=== PATIENT | male | born 1965 | race Two or more races ===

== ENCOUNTER 2018-05-18 11:46 | Emergency (ER) | payer OTHER ==
[~2018-05-18] VITALS: Ht 182.9 cm; Wt 117.9 kg
[~2018-05-18 11:46] MED LIST: AMOX1TAB12 PO; ASPIR-TRIN325 MG; ATORVASTATIN CA40 MG; COUMADIN10 MG PO; FENOFIBRATE54 MG; FLUCONAZOLE100 MG PO; GLIPIZIDE5 MG; HUMALOG100 U/ML; JANUMET XR 50-1 EAC1; LANTUS SOLOSTAR3 ML; LOSARTAN-HCTZ1 EAC2; METFORMIN HCL1000 MG; SYNTHROID175 MCG; VASOTEC20 MG
[2018-05-18] MEDS ORDERED: SYNTHROID175 MCG PO (12:31)
[2018-05-18] MEDS ORDERED: SYNTHROID150 MCG PO (12:31)
[2018-05-18] MEDS ORDERED: JANUMET 50-1,01 EACH PO (12:32)
[2018-05-18] MEDS ORDERED: [UNRECOGNIZED DRUG - OTHER] PO (12:32)
[2018-05-18] MEDS ORDERED: COZAAR25 MG PO (12:33)
[2018-05-18] MEDS ORDERED: LANTUS SOL100 UNIT/1 (12:33)
[2018-05-18] MEDS ORDERED: LANTUS SOL100 UNIT/1 SQ (12:33)
[2018-05-18] MEDS ORDERED: ATORVASTATIN CA40 MG PO (12:34)
[2018-05-18] MEDS ORDERED: ASA325 MG PO (12:34)
[2018-05-18] MEDS ORDERED: HUMALOG JU100 UNIT/1 SQ (12:34)
== END 2018-05-18 19:41 | disposition home or self-care (01) ==
LOC: ER 11:46 → CPU-OBS 12:01 → ER 12:01
DX: R07.89 Other chest pain (principal); H02.401 Unspecified ptosis of right eyelid
CPT/HCPCS: G0378; G0379; 93005; 70450

== ENCOUNTER 2019-09-23 05:32 | Inpatient (IN) | payer OTHER ==
[~2019-09-23] VITALS: Ht 167.6 cm; Wt 107.5 kg
[~2019-09-23 05:32] MED LIST changes: +ASA325 MG PO; +ATORVASTATIN CA40 MG PO; +COZAAR25 MG PO; +HUMALOG JU100 UNIT/1 SQ; +JANUMET 50-1,01 EACH PO; +LANTUS SOL100 UNIT/1; +LANTUS SOL100 UNIT/1 SQ; +SYNTHROID150 MCG PO; +SYNTHROID175 MCG PO; +[UNRECOGNIZED DRUG - OTHER] PO
--- NOTE | 2019-09-23 05:42 | NUR ---
FAMILIAR DEL PACIENTE REFIERE QUE EL PACIENTE SE LEVANTO DESORIENTADO CON DIFICULTAD AL HABLAR Y [place] INCOHERENCIAS. REFIERE QUE HACE 2 SEMANAS LE ELISABETH UN EPISODIO IGUAL Y [facility] DON[facility] LE REALIZARON CT MRI Y SALIERON NEGATIVOS. REFIERE QUE EL VIERNES LE ELISABETH OTRO EPISODIO IGUAL Y QUE EL ELLY DE BRADLEY Y LA MADRUGADA DE HOY LE SUCEDIO LO MISMO. AL MOMENTO DEL TRIAGE PTE SE ENCUENTRA ALERTA CONSCIENTE Y ORIENTADO X3. PRESENTA DIFICULTAD AL HABLAR Y NO PUEDE COORDINAR RASHEED PENSAMIENTOS.
[2019-09-23] MEDS ORDERED: ATACAND HCT 321 EAC1 (05:46)
[2019-09-23] MEDS ORDERED: XARELTO15 MG (05:46)
--- NOTE | 2019-09-23 06:20 | NUR ---
PACIENTE ALERTA Y ORIENTADO EN PERSONA. SE ORIENTA A PACIENTE Y FAMILIAR SOBRE PROCEDIMIENTO AREALIZAR Y REFIERE ENTENDER. SE REALIZA MUESTRAS DE LABORATORIO BAJO MEDIDAS ASEPTICAS. CANALIZACION PATENTE Y GENEVA DE EDEMA Y ERITEMA. SE MANTIENE BAJO OBSERVACION EN CAMA K6, CONECTADO A MONITOR CARDIACO Y OXIMETRIA DE PULSO.
--- NOTE | 2019-09-23 07:20 | NUR ---
SE RECIBE PT EN CAMA CON BARANDAS ELEVADAS Y TIMBRE ACCESIBLE, CONECTADO A MONITOR CARDIAOC Y OXIMETRIA DE PULSO CONTINUA. PT CON SALINE LOCK PATENTE. PT ALERTA, EN COMPANIA DE FAMILIAR. PT RESPONDE A LLAMADO, STEPHEN NO COORDINA PENSAMIENTOS NI VERBALIZAR IDEAS. SE MANTIENE EN OBSERVACION POR CAMBIOS.
--- NOTE | 2019-09-23 07:32 | NUR ---
SE RECIBE PT ALERTA Y ORIENTADO EN TIEMPO LUGAR Y PERSONA, EN CAMA CON BARANDAS ELEVADAS Y TIMBRE ACCESIBLE. PT CON SALINE LOCK, PENDIENTE DE RESULTADO DE LABORATORIO.
[2019-09-28] MEDS ORDERED: FOLIC ACID1 MG PO (14:43)
[2019-09-28] MEDS ORDERED: XARELTO15 MG PO (14:43)
[2019-09-28] MEDS ORDERED: HYDROCHLOROTH12.5 M1 PO (14:43)
[2019-09-28] MEDS ORDERED: LIPITOR40 MG PO (14:43)
[2019-09-28] MEDS ORDERED: POM (MEDICAMENTO EN PO (14:43)
[2019-09-28] MEDS ORDERED: ATACAND32 MG PO (14:43)
[2019-09-28] MEDS ORDERED: Lantus 1000 UNITS/10 SUBCUTANEO (14:43)
[2019-09-28] MEDS ORDERED: AMLODIPINE BESYL5 MG PO (14:43)
[2019-09-28] MEDS ORDERED: B Complex CAPSULE PO (14:43)
[2019-09-28] MEDS ORDERED: LEVOTHYROXINE150 MCG PO (14:43)
== END 2019-09-28 16:37 | disposition home or self-care (01) | DRG 69 ==
LOC: ER 05:32 → MEDJ 14:34
PROVIDERS: ADMIT Internal Medicine
PROC: BW28ZZZ Computerized Tomography (CT Scan) of Head (ICD-10-PCS; principal; 2019-09-23)
PROC: B030ZZZ Magnetic Resonance Imaging (MRI) of Brain (ICD-10-PCS; 2019-09-23)
PROC: B348ZZZ Ultrasonography of Bilateral Internal Carotid Arteries (ICD-10-PCS; 2019-09-24)
PROC: BR30YZZ Magnetic Resonance Imaging (MRI) of Cervical Spine using Other Contrast (ICD-10-PCS; 2019-09-27)
PROC: BR37YZZ Magnetic Resonance Imaging (MRI) of Thoracic Spine using Other Contrast (ICD-10-PCS; 2019-09-27)
DX: G45.9 Transient cerebral ischemic attack, unspecified (principal); F01.51 Vascular dementia, unspecified severity, with behavioral disturbance; E03.9 Hypothyroidism, unspecified; I10 Essential (primary) hypertension; E78.5 Hyperlipidemia, unspecified; E11.65 Type 2 diabetes mellitus with hyperglycemia; Z79.4 Long term (current) use of insulin; Z91.14 Patient's other noncompliance with medication regimen; R47.02 Dysphasia; E11.42 Type 2 diabetes mellitus with diabetic polyneuropathy; I51.7 Cardiomegaly
CPT/HCPCS: 70552; 72142; 72147

== ENCOUNTER 2021-02-25 18:18 | Inpatient (IN) | payer OTHER ==
[~2021-02-25] VITALS: Ht 182.9 cm; Wt 108.9 kg
[~2021-02-25 18:18] MED LIST changes: +AMLODIPINE BESYL5 MG PO; +ATACAND HCT 321 EAC1; +ATACAND32 MG PO; +B Complex CAPSULE PO; +FOLIC ACID1 MG PO; +HYDROCHLOROTH12.5 M1 PO; +LEVOTHYROXINE150 MCG PO; +LIPITOR40 MG PO; +Lantus 1000 UNITS/10 SUBCUTANEO; +POM (MEDICAMENTO EN PO; +XARELTO15 MG; +XARELTO15 MG PO
[2021-02-25] MEDS ORDERED: NEURONTIN300 MG (18:39)
[2021-02-25] MEDS ORDERED: KEPPRA500 MG (18:39)
[2021-02-25] MEDS ORDERED: ECOTRIN81 MG (18:39)
[2021-02-28] MEDS ORDERED: CLOPIDOGREL BIS75 MG PO (11:45)
[2021-02-28] MEDS ORDERED: LIPOFEN150 MG PO (11:45)
== END 2021-02-28 12:17 | disposition home or self-care (01) | DRG 64 ==
LOC: ER 18:18 → MEDI 02-26 10:43 → SEC-K 02-26 10:43 → MEDI 02-26 12:24
PROVIDERS: ADMIT Internal Medicine; ATTEND Internal Medicine
PROC: 4A12X4Z Monitoring of Cardiac Electrical Activity, External Approach (ICD-10-PCS; principal; 2021-02-26)
PROC: B24BZZZ Ultrasonography of Heart with Aorta (ICD-10-PCS; 2021-02-26)
PROC: B020ZZZ Computerized Tomography (CT Scan) of Brain (ICD-10-PCS; 2021-02-26)
PROC: B030ZZZ Magnetic Resonance Imaging (MRI) of Brain (ICD-10-PCS; 2021-02-26)
PROC: B348ZZZ Ultrasonography of Bilateral Internal Carotid Arteries (ICD-10-PCS; 2021-02-26)
DX: I63.532 Cerebral infarction due to unspecified occlusion or stenosis of left posterior cerebral artery (principal); I50.23 Acute on chronic systolic (congestive) heart failure; I11.0 Hypertensive heart disease with heart failure; E11.65 Type 2 diabetes mellitus with hyperglycemia; Z79.4 Long term (current) use of insulin; E03.8 Other specified hypothyroidism; R47.81 Slurred speech; Z20.822 Contact with and (suspected) exposure to COVID-19
CPT/HCPCS: 70551

== ENCOUNTER 2024-08-06 11:13 | Inpatient (IN) | payer OTHER ==
[~2024-08-06] VITALS: Ht 182.9 cm; Wt 231.8 kg
[~2024-08-06 11:13] MED LIST changes: +CLOPIDOGREL BIS75 MG PO; +ECOTRIN81 MG; +KEPPRA500 MG; +KEPPRA500 MG PO; +LIPOFEN150 MG PO; +NEURONTIN300 MG
--- NOTE | 2024-08-06 11:42 | NUR ---
PACIENTE MASCULINO ALERTA Y ORIENTADO X3, REFIERE PACIENTE EL ELLY SE LE REALIZO UN MRI DE ALISHA EL CUAL LE REFIERE LLEGAR A OFE DE EMERGENCIA.
[2024-08-06] MEDS ORDERED: 0.9 % SODIUM CHLORIDE 1,000 ML IV SCH ×2 (12:15→14:30)
[2024-08-06] MEDS ORDERED: LevETIRAcetam 500 MG/5 ML VIAL IV SCH (12:21)
[2024-08-06] MEDS ORDERED: LABETALOL HCL 200 MG/40 ML VIAL IV PRN (12:30)
--- NOTE | 2024-08-06 12:40 | NUR ---
SE RECIBE PTE ALERTA Y ORIENTADO X3 DE AREA DE TRIAGE EL CUAL SE CONECTA A MONITOR CARDIACO Y OXIMETRIA DE PULSO. SE CANALIZQA #18 EN [place]. SE COLOCA IVLFUIDS EMILY ORDEN MEDICA. SE REALIZAN MUESTRAS DE LABS Y SE ENVIAN DE FORMA INMEDIATA. SE EKATERINA PTE BAJO TX EN CAMA BAJA Y ABRANDAS ELEVADAS POR SEGURIDAD.
[2024-08-06 12:41] LABS: HEMATOCRIT 43.7 % (39.0-48.0); HEMOGLOBIN 14.7 g/dL (13-16.00); MEAN CELL VOLUME 87.1 fL (80.0-100.00); MEAN CORPUSCULAR HEMOGLOBIN 29.3 pg (27.00-32.0); MEAN CORPUSCULAR HGB CONC 33.6 g/dl (32.0-36.0); PLATELET COUNT 291 K/uL (150-450); RED BLOOD COUNT 5.01 M/uL (4.00-6.00); RED CELL DISTRIBUTION WIDTH 13.8 % (11.5-14.5)
[2024-08-06 13:04] LABS: ABG PH 7.409 (7.35-7.45); ABG PO2 84.1 mmHg (80-100); ABG pCO2 40.5 mmHg (35-45)
[2024-08-06 13:05] LABS: BASE EXCESS 0.4 mmol/l; SaO2 96.4 %; Tco2 26.3 mmol/l; allen test SATISFACTORY; o2 21 %; puncture site RADIAL LEFT
[2024-08-06 13:11] LABS: ALBUMIN 4.2 gm/dL (3.4-5.0); BILIRUBIN TOTAL 0.43 mg/dL (0.3-1.2); CALCIUM 9.8 mg/dL (8.5-10.1); CREATININE SERUM 1.14 mg/dL (0.70-1.30); GFR 65.75; GLOBULINA 4.2 G/DL (2.4-3.5); POTASSIUM 4.18 mEq/L (3.5-5.1); TOTAL PROTEIN 8.4 gm/dL (6.4-8.2)
[2024-08-06 13:46] LABS: INR 1.04; PARTIAL THROMBOPLASTIN TIME 29.6 SECONDS (22.0-34.0); PROTHROMBIN TIME 11.3 SECONDS (9.0-11.5)
[2024-08-06 13:54] LABS: PH,URINE 6.5 (5.0-8.0); URINE APPEARANCE Clear; URINE BILIRRUBIN Negative (NEGATIVE); URINE BLOOD Negative; URINE COLOR Yellow; URINE KETONE Negative (NEGATIVE); URINE LEUKOCYTE Negative; URINE NITRATE Negative; URINE PROTEIN Negative (NEGATIVE); URINE WBC 7.2 uL (0.0-23.2)
[2024-08-06 14:50] LABS: URINE BACTERIA 2.4 uL (0.0-1933); URINE EPITHELIAL CELLS 0.1 uL (0.0-38.8); URINE GLUCOSE >=1000 MG/DL (NEGATIVE); URINE SPERM FEW
--- NOTE | 2024-08-06 15:25 | NUR ---
SE RECIBE PTE MASCULINO ALERTA Y ORIENTADO X3 DEL TURNO ANTERIOR EN CAMA #2 DE UNIDAD DE CRITICO; CONECTADO A MONITOR CARDIACO Y OXIMETRIA DE PULSO CONTINUA. SE OBSERVA ASISTIDO CON CANULA NASAL A 2LT/MIN. PTE SIN QUEJA DE DOLOR AL MOMENTO. VENOPUNCION PATENTE GENEVA DE EDEMA Y ERITEMA RECIBIENDO TERAPIA DE IVFS 0.9NSS BAJANDO A 60ML/HR. PTE EN CAMA NIVEL MAS BAJO CON BARANDAS ELEVADAS Y FRENOS COLOCADOS POR SEGURIDAD. PENDIENTE ESTUDIO CT DE REZA CON IV CONTRAST DEL TURNO AMTERIO. SE OBSERVA POR CAMBIOS EN TILLEY CONDICION.
--- NOTE | 2024-08-06 15:45 | NUR ---
SE NOTIFICA ESTUDIO PENDIENTE A PERSONAL DE RADIOLOGIA QUIENES REFIEREN NO ES INDICADO ADMINISTRAR NUEVAMENTE CONSTRASTE EMILY PROTOCOLO. SE NOTIFICA A MD SHALONDA BATISTA.
[2024-08-06] MEDS ORDERED: ATORVASTATIN CALCIUM 40 MG TABLET PO SCH (16:51)
[2024-08-06] MEDS ORDERED: PATIENTS OWN MEDICATION (MEDICAMENTO EN PISO) PO SCH ×2 (17:00)
[2024-08-06] MEDS ORDERED: INSULIN LISPRO 1,000 UNIT/10 ML UNITS SUBCUTANEO PRN (17:15)
[2024-08-06] MEDS ORDERED: DEXTROSE 50 % IN WATER 0.5 G/ML DISP.SYRIN IV PRN (17:15)
[2024-08-06 18:20] VITALS: BP 116/69; O2SAT 95
[2024-08-06 18:48] LABS: CHOL HDL RATIO 4.8 (0-5.0); TSH 2.9 uIU/mL (0.358-3.74)
[2024-08-06 19:25] VITALS: BP 114/65; O2SAT 95
[2024-08-06 22:41] VITALS: BP 132/86; O2SAT 95
[2024-08-06 23:33] VITALS: BP 140/81; O2SAT 95
[2024-08-07] VITALS (7 sets, daily range): BP systolic 100–126; BP diastolic 54–73; O2SAT 95–96
[2024-08-07] MEDS ORDERED: LEVOTHYROXINE SODIUM 137 MCG TABLET PO SCH (06:00)
[2024-08-07] MEDS ORDERED: AMLODIPINE BESYLATE 5 MG TABLET PO SCH (09:00)
[2024-08-07] MEDS ORDERED: RIVAROXABAN 20 MG TABLET PO SCH (09:00)
[2024-08-07] MEDS ORDERED: ASPIRIN 81 MG TABLET.EC PO SCH (09:00)
[2024-08-07] MEDS ORDERED: LevETIRAcetam 500 MG TAB. PO SCH (09:00)
[2024-08-07] MEDS ORDERED: PATIENTS OWN MEDICATION (MEDICAMENTO EN PISO) PO SCH ×2 (09:00)
[2024-08-07] MEDS ORDERED: PANTOPRAZOLE SODIUM 40 MG TABLET.DR PO SCH (09:00)
[2024-08-07] MEDS ORDERED: INSULIN GLARGINE,HUM.REC.ANLOG 1,000 UNITS/10 ML UNITS SUBCUTANEO SCH (21:00)
[2024-08-08 00:34] VITALS: BP 131/76; O2SAT 94
[2024-08-08] MEDS ORDERED: INSULIN LISPRO 1,000 UNIT/10 ML UNITS SUBCUTANEO SCH (08:00)
[2024-08-08 08:37] VITALS: BP 138/78; O2SAT 96
[2024-08-08] MEDS ORDERED: APIXABAN 5 MG TABLET PO SCH (09:00)
[2024-08-08] MEDS ORDERED: ELIQUIS5 MG PO (11:30)
[2024-08-08] MEDS ORDERED: LIPITOR40 M1 PO (11:30)
[2024-08-08] MEDS ORDERED: UROXATRAL10 MG PO (11:31)
[2024-08-08] MEDS ORDERED: ST. JOSEPH ASPI81 M2 PO (11:31)
== END 2024-08-08 12:48 | disposition home or self-care (01) | DRG 65 ==
LOC: ER 11:15 → MEDI 18:49 → ICU-2 18:49 → MEDI 08-07 13:07
PROVIDERS: General Practice; ADMIT Internal Medicine; ATTEND Internal Medicine
PROC: BW28YZZ Computerized Tomography (CT Scan) of Head using Other Contrast (ICD-10-PCS; 2024-08-06)
PROC: B54DZZZ Ultrasonography of Bilateral Lower Extremity Veins (ICD-10-PCS; 2024-08-06)
PROC: B345ZZZ Ultrasonography of Bilateral Common Carotid Arteries (ICD-10-PCS; 2024-08-06)
PROC: B24BZZZ Ultrasonography of Heart with Aorta (ICD-10-PCS; 2024-08-06)
PROC: 4A12X4Z Monitoring of Cardiac Electrical Activity, External Approach (ICD-10-PCS; principal; 2024-08-07)
DX: I63.233 Cerebral infarction due to unspecified occlusion or stenosis of bilateral carotid arteries (principal); I50.30 Unspecified diastolic (congestive) heart failure; I87.2 Venous insufficiency (chronic) (peripheral); I11.0 Hypertensive heart disease with heart failure; Z79.4 Long term (current) use of insulin; E78.5 Hyperlipidemia, unspecified; E11.65 Type 2 diabetes mellitus with hyperglycemia; E03.9 Hypothyroidism, unspecified; Z86.718 Personal history of other venous thrombosis and embolism

== ENCOUNTER 2025-02-17 11:51 | Emergency (ER) | payer OTHER ==
[~2025-02-17] VITALS: Ht 182.9 cm; Wt 108.0 kg
[~2025-02-17 11:51] MED LIST changes: +ELIQUIS5 MG PO; +LIPITOR40 M1 PO; +ST. JOSEPH ASPI81 M2 PO; +UROXATRAL10 MG PO
[2025-02-17] MEDS ORDERED: FENOFIBRATE145 MG PO (12:08)
[2025-02-17] MEDS ORDERED: OMEGA-3 ACID ETH1 GM PO (12:09)
[2025-02-17] MEDS ORDERED: VALSARTAN-HCTZ1 EAC4 PO (12:09)
[2025-02-17] MEDS ORDERED: HUMALOG KW100 UNIT/1 SQ (12:09)
[2025-02-17] MEDS ORDERED: SYNJARDY XR 121 EACH PO (12:09)
[2025-02-17] MEDS ORDERED: ROSUVASTATIN CA40 MG PO (12:10)
[2025-02-17] MEDS ORDERED: PLAVIX75 MG (12:11)
[2025-02-17] MEDS ORDERED: MECLIZINE HCL 25 MG TABLET PO ONE (12:45)
[2025-02-17 12:58] LABS: BASO % 0.6 % (0.1-1.2); EOS # 0.13 (0.04-0.54); EOS % 1.2 % (0.7-7.0); LYMPH # 1.17 (1.18-3.74); LYMPH % 10.6 % (19.3-53.1); MEAN PLATELET VOLUME 11.30 fl (9.4-12.4); MONO # 0.62 (0.24-0.82); MONO % 5.6 % (4.7-12.5); NEUT # 8.98 (1.56-6.13); NEUT % 81.8 % (34.0-71.1); RED CELL DISTRIBUTION WIDTH 12.9 % (11.6-14.4)
[2025-02-17 13:25] LABS: ALT/SGPT 42.0 U/L (12-78); AST/SGOT 32.0 U/L (15-37); BILIRUBIN TOTAL 0.65 mg/dL (0.3-1.2); BUN CREA RATIO 18.0 (7.0-25.0); CREATININE SERUM 1.38 mg/dL (0.70-1.30); GFR 52.74; GLOBULINA 4.5 G/DL (2.4-3.5); OSMOLALITY SERUM 294.0 MOSM/KG (275-295)
[2025-02-17 13:51] LABS: GLUCOSE FASTING 281.0 mg/dL (65-100)
[2025-02-17 14:07] LABS: URINE APPEARANCE Clear; URINE BILIRRUBIN Negative (NEGATIVE); URINE BLOOD Negative; URINE COLOR Yellow; URINE KETONE Negative (NEGATIVE); URINE LEUKOCYTE Negative; URINE NITRATE Negative; URINE PROTEIN 30 (NEGATIVE); URINE UROBILINOGEN 1.0 E.U./dl
[2025-02-17 14:11] LABS: URINE BACTERIA 8.3 uL (0.0-1933); URINE RBC 2.1 uL (0.0-20.8); URINE WBC 1.8 uL (0.0-23.2)
[2025-02-17 14:16] LABS: URINE CAST 0.14 uL (0.0-1.40); URINE EPITHELIAL CELLS 1.0 uL (0.0-38.8); URINE GLUCOSE >=1000 MG/DL (NEGATIVE)
== END 2025-02-17 16:07 | disposition home or self-care (01) ==
LOC: ER 11:56
PROVIDERS: Emergency Medicine
DX: R42 Dizziness and giddiness (principal); E78.00 Pure hypercholesterolemia, unspecified; E03.8 Other specified hypothyroidism; I10 Essential (primary) hypertension; E11.65 Type 2 diabetes mellitus with hyperglycemia; Z79.4 Long term (current) use of insulin